=== PATIENT | male | born 1980 | race Caucasian/White ===

== ENCOUNTER → 2016-12-04 | Outpatient (CLI) | payer OTHER ==
--- NOTE | 2016-12-04 14:19 | KCIC ---
THYROID ULTRASOUND History: Right anterior neck mass and swelling Comparison: None. Findings: Multiple sonographic images of the thyroid gland are submitted. Right lobe measured 5.6 x 1.7 x 2.4 cm. Left lobe measured 4.9 x 1.5 x 2.1 cm. Isthmus measured 0.4 cm in thickness. No discrete nodularity is demonstrated of the thyroid gland although heterogeneous parenchyma. There is a small possible lymph node in the anterior right neck on the order of 0.9 x 0.3 x 0.6 cm, not considered enlarged. Impression: 1. There is mild right thyromegaly, no discrete thyroid nodularity demonstrated although nonspecific heterogeneity of parenchyma. Electronically signed by: Sherwin Johnson MD (12/04/2016 2:15 PM)
== END | disposition home or self-care (01) ==
LOC: KCIC US 12:34
PROVIDERS: ATTEND Otolaryngology
DX: R22.1 Localized swelling, mass and lump, neck (principal)
CPT/HCPCS: 76536

== ENCOUNTER → 2017-02-16 | Outpatient (CLI) | payer OTHER ==
--- NOTE | 2017-02-16 11:17 | KCIC ---
Esophagram HISTORY: Difficulty swallowing for about 3 months of both solids and liquids, recent endoscopy COMPARISON: None FINDINGS: Barium esophagram was performed. Esophagus is dilated. There is persistent narrowing at the lower esophageal sphincter throughout the exam, severe narrowing of the lumen. However contrast did transit into the stomach. There is significant delay of emptying of the esophagus. No hiatal hernia is identified. Propulsive contractions of esophagus are considered within normal limits. There is some irregularity of the esophageal mucosa such as of the mid body. Fluoroscopy time: 2 minutes 25 seconds, 15 images. IMPRESSION: 1. There is esophageal dilatation and persistent narrowing of the lower esophageal sphincter without significant relaxation, overall findings most compatible with achalasia although underlying stricture would be difficult to exclude. There is some esophageal mucosal abnormality which could be seen with esophagitis. Electronically signed by: Sherwin Johnson MD (02/16/2017 11:14 AM) [email or web address]
== END | disposition home or self-care (01) ==
LOC: KCIC 09:34
PROVIDERS: ATTEND Internal Medicine Gastroenterology
DX: R13.10 Dysphagia, unspecified (principal)
CPT/HCPCS: 74220

== ENCOUNTER → 2017-05-21 | Outpatient (CLI) | payer OTHER ==
[2017-04-28 11:00] VITALS: BP 141/95
--- NOTE | 2017-05-21 10:59 | KCIC ---
CT MAXILLOFACIAL WO CONTRAST dated 05/21/2017 10:30 AM Indication: Chronic pansinusitis [employer] fusion protocol... Comparison: No comparison is available. Technique: Contiguous axial imaging of maxillofacial bones obtained with thin cut coronal and sagittal reconstruction. One or more of the following individualized dose reduction techniques were utilized for this examination: 1. Automated exposure control 2. Adjustment of the mA and/or kV according to patient size 3. Use of iterative reconstruction technique Findings: Small mucous retention cyst versus polyp in the inferior right maxillary sinus that measures about 5 mm in size. Mild to moderate mucosal thickening of the bilateral ethmoid air cells. The sphenoid and frontal sinuses are clear. There is moderate hypertrophy of the nasal turbinates. There is prominent debbie bullosa on the right. There is resultant thickening of the medial maxillary wall on the right with occlusion of the right ostomy unit and infundibulum. There may be a small postsurgical defect of the medial maxillary wall in the right. The nasal septum is moderately deviated the right There is extensive opacification of the bilateral mastoid air cells and bilateral middle ears. No apparent bony destructive process or periostitis. Limited imaged portions the brain parenchyma are unremarkable. No significant soft tissue abnormality. IMPRESSION: 1. Extensive opacification of the bilateral mastoid air cells and bilateral middle ear, acute versus chronic mastoiditis and/or otitis media. 2. Mild sinus disease. 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 3. Moderate nasal septal deviation to the right. Electronically signed by: Fidel Garland MD (05/21/2017 10:56 AM) [id number]
== END | disposition home or self-care (01) ==
LOC: KCIC CT 10:20
PROVIDERS: ATTEND Otolaryngology
DX: J32.4 Chronic pansinusitis (principal); J34.2 Deviated nasal septum
CPT/HCPCS: 70486